=== PATIENT | male | born 1975 | race Caucasian/White ===

== ENCOUNTER 2017-01-23 20:00 | Emergency (ER) | payer BC, MEDICAID ==
[2017-01-23] MEDS ORDERED: Ibuprofen 600 MG Tab PO ONE (20:01)
[2017-01-23] MEDS ORDERED: Cyclobenzaprine 10 MG Tab PO ONE (20:01)
[2017-01-23 20:27] VITALS: BP 129/89
[2017-01-23] MEDS ORDERED: Ketorolac 30 MG/ML SDV IM ONE (23:12)
[2017-01-23] MEDS ORDERED: Cyclobenzaprine 10 MG Tab ONE (23:18)
[2017-01-23] MEDS ORDERED: Ibuprofen 600 MG Tab ONE (23:18)
--- NOTE | 2017-01-23 23:21 | EDM.PDOC ---
ED HPI GENERAL MEDICAL PROBLEM - General Chief Complaint: Neck Problem Stated Complaint: NECK PAIN DOWN INTO RIGHT ARM,[id number] Time Seen by Provider: 01/23/17 22:53 Source of Information: Reports: Patient History Limitations: Reports: No Limitations - History of Present Illness INITIAL COMMENTS - FREE TEXT/NARRATIVE: neck and right arm pain since Sunday. Seen in [place] [facility] over weekend and given pain medications through . Admits he has not followed with PCP Dr Curtis. Hx DJDz pain starts at neck to shoulder blade, radiates down arm to hand. last ibuprofen early this am, ran out. 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) Right Neck Pain Score (Numeric/FACES): 9 - Related Data Allergies Allergy/AdvReac Type Severity Reaction Status Date / Time No Known Allergies Allergy Verified 04/27/16 17:46 Home Meds: Home Meds Cyclobenzaprine [Flexeril] 10 mg PO TID 05/25/16 [History] Amphetamine Sulfate [Evekeo] 1 tab PO DAILY 01/23/17 [History] Amphetamine/Dextroamphetamine [Adderall XR] 1 tab PO TID 01/23/17 [History] Citalopram [Celexa] 1 tab PO DAILY 01/23/17 [History] Prazosin [Minpress] 1 tab PO BEDTIME 01/23/17 [History] traZODone 1 tab PO BEDTIME 01/23/17 [History] Past Medical History Musculoskeletal History: Reports: Neck Pain, Chronic Other Musculoskeletal History: discectomy Neurological History: Reports: Headaches, Chronic Psychiatric History: Reports: ADHD, Anxiety, Depression - Infectious Disease History Infectious Disease History: Reports: Chicken Pox - Past Surgical History Neurological Surgical History: Reports: Discectomy Social & Family History - Family History Family Medical History: Noncontributory - Tobacco Use Smoking Status *Q: Current Some Day Smoker Years of Tobacco use: 21 Packs/Tins Daily: 0.1 Used Tobacco, but Quit: No Second Hand Smoke Exposure: Yes - Caffeine Use Caffeine Use: Reports: Coffee, Soda Caffeine Use Comment: multiple caffienated drinks daily - Alcohol Use Days Per Week of Alcohol Use: 0 - Recreational Drug Use Recreational Drug Use: No ED ROS GENERAL - Review of Systems Review Of Systems: ROS reveals no pertinent complaints other than HPI. ED EXAM, GENERAL - Physical Exam Exam: See Below Exam Limited By: No Limitations General Appearance: Alert, Mild Distress, Thin Eye Exam: Bilateral Eye: EOMI Ears: Normal External Exam, Normal TMs Nose: Normal Inspection Throat/Mouth: Normal Inspection Head: Atraumatic, Normocephalic Neck: Normal Inspection, Full Range of Motion Respiratory/Chest: No Respiratory Distress, Lungs Clear Cardiovascular: Normal Peripheral Pulses, Regular Rate, Rhythm GI/Abdominal: Normal Bowel Sounds, Soft Back Exam: Full Range of Motion, Muscle Spasm (tender right trapeziuz with palpation) Extremities: Normal Range of Motion. No: Limited Range of Motion, Increased Warmth, Pallor Neurological: Alert, Oriented, No Motor/Sensory Deficits, Inattentive, Other ( good patrol sergeant strength) Psychiatric: Anxious Skin Exam: Warm, Dry, Intact, Normal Color Course - Vital Signs Last Recorded V/S: Last Vital Signs Temp 98.0 F 01/23/17 20:26 Pulse 130 H 01/23/17 20:26 Resp 20 01/23/17 20:26 BP 129/89 01/23/17 20:26 Pulse Ox 100 01/23/17 20:26 - Orders/Labs/Meds Meds: Medications Discontinued Medications Generic Name Dose Route Start Last Admin Trade Name Freq PRN Reason Stop Dose Admin Cyclobenzaprine HCl Confirm 01/23/17 23:18 01/23/17 23:23 Flexeril Administered 01/23/17 23:19 Not Given Dose 10 mg .ROUTE .STK-MED ONE Cyclobenzaprine HCl 10 mg 01/23/17 20:01 Flexeril PO 01/23/17 20:02 .STK-MED ONE Ibuprofen Confirm 01/23/17 23:18 01/23/17 23:23 Motrin Administered 01/23/17 23:19 Not Given Dose 600 mg .ROUTE .STK-MED ONE Ibuprofen 600 mg 01/23/17 20:01 Motrin PO 01/23/17 20:02 .STK-MED ONE Ketorolac Tromethamine 30 mg 01/23/17 23:12 01/23/17 23:23 Toradol IM 01/23/17 23:13 30 mg ONETIME ONE Administration Departure - Departure Time of Disposition: 23:18 Disposition: Home, Self-Care 01 Condition: Good Clinical Impression: Thoracic radiculopathy - Discharge Information Forms: ED Department Discharge Additional Instructions: Follow up in primary care ibuprofen 600mg , may alternate with tylenol 650mg every 4 hours as needed for pain ice to area. flexeril 10mg one time at bed tonight
== END 2017-01-23 23:30 | disposition home or self-care (01) ==
LOC: DL.ED 20:00
DX: M54.14 Radiculopathy, thoracic region (principal); F41.9 Anxiety disorder, unspecified; F32.9 Major depressive disorder, single episode, unspecified; F17.210 Nicotine dependence, cigarettes, uncomplicated; Z79.899 Other long term (current) drug therapy
CPT/HCPCS: 96372; 99283; J1885; A9270-GY

== ENCOUNTER 2017-02-14 03:39 | Emergency (ER) | payer BC, MEDICAID ==
[2017-02-14] MEDS ORDERED: Gabapentin 100 MG Cap PO ONE (03:40)
[2017-02-14] MEDS ORDERED: predniSONE 10 MG Tab PO ONE (03:40)
[2017-02-14 03:48] VITALS: BP 149/99
[2017-02-14] MEDS ORDERED: predniSONE 10 MG Tab ONE (04:32)
--- NOTE | 2017-02-14 04:33 | EDM.PDOC ---
ED HPI GENERAL MEDICAL PROBLEM - General Chief Complaint: Upper Extremity Injury/Pain Stated Complaint: TINGLING IN ARM Time Seen by Provider: 02/14/17 03:45 Left Arm Pain Score (Numeric/FACES): 4 - Related Data Allergies Allergy/AdvReac Type Severity Reaction Status Date / Time No Known Allergies Allergy Verified 02/14/17 03:48 Home Meds: Home Meds Dextroamphetamine/Amphetamine [Adderall 10 mg Tablet] 10 mg PO TID 02/14/17 [ History] Hydrocodone/Acetaminophen [Hydrocodon-Acetaminophn 10-325] 1 - 2 tab PO Q6H PRN 02/14/17 [History] Past Medical History Musculoskeletal History: Reports: Neck Pain, Chronic Other Musculoskeletal History: discectomy Neurological History: Reports: CVA, Headaches, Chronic Psychiatric History: Reports: Anxiety, Depression - Infectious Disease History Infectious Disease History: Reports: Chicken Pox - Past Surgical History Neurological Surgical History: Reports: Discectomy Social & Family History - Family History Family Medical History: Noncontributory - Tobacco Use Smoking Status *Q: Never Smoker Years of Tobacco use: 21 Packs/Tins Daily: 0.1 Used Tobacco, but Quit: No Second Hand Smoke Exposure: Yes - Caffeine Use Caffeine Use: Reports: Coffee, Soda Caffeine Use Comment: multiple caffienated drinks daily - Alcohol Use Days Per Week of Alcohol Use: 0 - Recreational Drug Use Recreational Drug Use: No Review of Systems - Review of Systems Review Of Systems: See Below Constitutional: Reports: No Symptoms Eyes: Reports: No Symptoms Ears: Reports: No Symptoms Nose: Reports: No Symptoms Mouth/Throat: Reports: No Symptoms Respiratory: Reports: No Symptoms Cardiovascular: Reports: No Symptoms GI/Abdominal: Reports: No Symptoms Skin: Reports: Wound (surgical incision) Neurological: Reports: Tingling (left arm tingling from tip of index finger to axila lessened by rest worse with movments, noted on discharge sunday worse throughout today). Denies: Weakness Psychiatric: Reports: No Symptoms ED EXAM, GENERAL - Physical Exam Exam: See Below Exam Limited By: No Limitations General Appearance: Alert, No Apparent Distress, Anxious Eye Exam: Bilateral Eye: EOMI Ears: Normal External Exam Nose: Normal Inspection Throat/Mouth: Normal Inspection Head: Atraumatic, Normocephalic Neck: Other (anterior surgical incisionCDI no redness or swelling) Respiratory/Chest: No Respiratory Distress, Lungs Clear Cardiovascular: Normal Peripheral Pulses, Regular Rate, Rhythm Peripheral Pulses: 3+: Brachial (L), Radial (L), Radial (R) GI/Abdominal: Normal Bowel Sounds, Soft Back Exam: Normal Inspection, Paraspinal Tenderness (cervical) Extremities: Normal Inspection, Normal Range of Motion, Other (slight inflamation IV site dorsal left hand) Neurological: Alert, Oriented, CN II-XII Intact, Normal Cognition, Normal Reflexes, No Motor/Sensory Deficits Psychiatric: Anxious Skin Exam: Warm, Dry, Wound/Incision (surgical anterior lower neck). No: Erythema, Increased Warmth Course - Vital Signs Last Recorded V/S: Last Vital Signs Temp 97.8 F 02/14/17 03:43 Pulse 127 H 02/14/17 03:43 Resp 18 02/14/17 03:43 BP 149/99 H 02/14/17 03:43 Pulse Ox 100 02/14/17 03:43 - Orders/Labs/Meds Meds: Medications Discontinued Medications Generic Name Dose Route Start Last Admin Trade Name Diamond PRN Reason Stop Dose Admin Gabapentin Confirm 02/14/17 04:36 Neurontin Administered 02/14/17 04:37 Dose 100 mg .ROUTE .STK-MED ONE Prednisone Confirm 02/14/17 04:32 Prednisone Administered 02/14/17 04:33 Dose 10 mg .ROUTE .STK-MED ONE - Re-Assessments/Exams Free Text/Narrative Re-Assessment/Exam: 02/14/17 05:[address] Gunnar Sanchez neurosurgery recommend medrol dose pack, Gabapentin 100mg 3 times daily and follow up with scheduled appointment. Departure - Departure Time of Disposition: 04:28 Disposition: Home, Self-Care 01 Condition: Undetermined Clinical Impression: S/P cervical disc replacement, Tingling of left upper extremity - Discharge Information Instructions: Cervical Radiculopathy Referrals: PCP,Unobtain [Ordering Only Provider] - Forms: ED Department Discharge Additional Instructions: Medrol Dose pack per card instructions Gabapentin 100mg three times daily No driving while on this medication until determine how it affects you Follow up with Neurosurgery this week if not improving rest , light activity,,no lifting
[2017-02-14] MEDS ORDERED: Gabapentin 100 MG Cap ONE (04:36)
== END 2017-02-14 04:42 | disposition home or self-care (01) ==
LOC: DL.ED 03:39
DX: R20.2 Paresthesia of skin (principal); L08.9 Local infection of the skin and subcutaneous tissue, unspecified; Z98.890 Other specified postprocedural states
CPT/HCPCS: 99283; A9270

== ENCOUNTER 2017-05-19 08:56 | Emergency (ER) | payer BC, MEDICAID ==
[2017-05-19] MEDS ORDERED: Sodium Chloride 0.9% 10 ML Syringe FLUSH PRN (09:54)
[2017-05-19] MEDS ORDERED: Lactated Ringers 1,000 ML IV ONE (09:56)
[2017-05-19] MEDS ORDERED: Iopamidol 612 MG/ML 75 ML Bottle IVPUSH ONE (10:30)
[2017-05-19 10:42] LABS: ANION GAP 17.9; CHLORIDE,CL 99 mmol/L (101-111); SODIUM,NA 134 mmol/L (135-145)
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
[2017-05-19] MEDS ORDERED: cefTRIAXone 250 MG Vial IM ONE (15:38)
[2017-05-19] MEDS ORDERED: Azithromycin 250 MG Tab PO ONE (15:38)
--- NOTE | 2017-05-19 15:40 | US ---
Clinical history: 42-year-old male suggestion of left sided "varicocele" on recent CT exam obtained f or pain left groin and scrotum. Interpretation: 1. Symmetric normal testicular size, configuration and homogeneous density. Asymmetric relative increased blood flow left testicle just possibility of an orchitis. Clinical?. 2. No sign of infarct or tumor mass either testicle. No hydroceles. 3. Asymmetric edematous appearing epididymis, on the left, where there is increased blood flow. No cy sts or mass. 4. Solitary tiny solitary tiny or x 8 mm cyst head of the contralateral right epididymis. CONCLUSION: Possible orchitis and/or epididymitis scrotum on the left. No sign of testicular infarct, varicocele or hydrocele.
[2017-05-19 15:44] VITALS: BP 111/75
[2017-05-19] MEDS ORDERED: Lidocaine 1% 30 ML SDV ONE (16:10)
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
== END 2017-05-19 17:36 | disposition home or self-care (01) ==
LOC: DL.ED 08:56
DX: T33.821A Superficial frostbite of right foot, initial encounter (principal); T33.822A Superficial frostbite of left foot, initial encounter; N45.3 Epididymo-orchitis; Z79.899 Other long term (current) drug therapy; X31.XXXA Exposure to excessive natural cold, initial encounter
CPT/HCPCS: 36415; 74177; 76870; 80053; 80305; 81001; 82550; 82553; 85025; 87491; 87591; 96361; 96374; 99285; A9270; G0480; J0696; J7050; J7120; Q9967; 93975